=== PATIENT | male | born 1985 | race Caucasian/White ===

== ENCOUNTER 2022-01-20 05:09 | Emergency (ER) | payer BC ==
[2022-01-20] MEDS ORDERED: predniSONE 20 MG TABLET (UD) ONE (05:15)
[2022-01-20] MEDS ORDERED: predniSONE 20 MG TABLET (UD) PO ONE (05:17)
[2022-01-20 05:18] VITALS: BP 101/69; PULSE 60; RESP 17; TEMP 98; BMI 28.2
== END 2022-01-20 05:36 | disposition home or self-care (01) ==
LOC: FER 05:09
DX: T78.40XA Allergy, unspecified, initial encounter (principal)
CPT/HCPCS: 99283-25